=== PATIENT | female | born 1990 | race Caucasian/White ===

== ENCOUNTER 2017-06-11 12:03 | Emergency (ER) | payer MEDICAID ==
[~2017-06-11] VITALS: Ht 167.6 cm; Wt 77.1 kg
[2017-06-11 13:44] LABS: Urine Bilirubin Negative (Negative); Urine Blood Negative /uL (Negative); Urine Color Yellow (Yellow); Urine Glucose Normal (Normal); Urine Ketone Negative (Negative); Urine Mucus FEW (None Seen); Urine Nitrite Negative (Negative); Urine RBC 7 /hpf (0 - 4); Urine Squamous Epithelial Cell MOD /hpf (<5); Urine Urobilinogen Normal (Negative); Urine pH 6.5 (5.0-8.0)
[2017-06-11 15:32] VITALS: BP 104/62
== END 2017-06-11 18:03 | disposition home or self-care (01) ==
LOC: ER 12:03
DX: O23.41 Unspecified infection of urinary tract in pregnancy, first trimester (principal); O99.331 Smoking (tobacco) complicating pregnancy, first trimester; F17.210 Nicotine dependence, cigarettes, uncomplicated; Z3A.11 11 weeks gestation of pregnancy
CPT/HCPCS: 36415; 76801; 81001; 84702

== ENCOUNTER 2020-03-14 21:18 | Emergency (ER) | payer MEDICAID ==
[~2020-03-14] VITALS: Ht 170.2 cm; Wt 59.0 kg
[2020-03-14 22:13] LABS: Urine Bacteria FEW /hpf (None Seen); Urine Blood 3+ /uL (Negative); Urine Specific Gravity 1.003 (1.001-1.035); Urine WBC 3 /hpf (0 - 5)
[2020-03-14 22:19] LABS: Basophils # (auto) 0 10 ^3/uL (0-0.2); Basophils % (auto) 0.4 % (0.0-2.0); Eosinophils # (auto) 0 10 ^3/uL (0-0.8); Eosinophils % (auto) 0.1 % (0.0-7.0); Hematocrit 40.5 % (36.0-46.0); Hemoglobin 14.2 g/dL (12.2-16.2); Lymphocytes # (auto) 0.9 10 ^3/uL (0.4-5.4); Lymphocytes % (auto) 9.8 % (10.0-50.0); Mean Corpuscular Hemoglobin 31.9 pg (28.0-32.0); Mean Corpuscular Hgb Conc. 35.1 g/dL (32.0-36.0); Mean Corpuscular Volume 90.8 fL (80.0-100.0); Monocytes # (auto) 0.6 10 ^3/uL (0-1.3); Monocytes % (auto) 6.5 % (0.0-12.0); Neutrophils # (auto) 7.7 10 ^3/uL (1.6-8.6); Neutrophils % (auto) 83.2 % (37.0-80.0); Nucleated Red Blood Cells % 0.1 %; Platelet Count (auto) 185 10^3/uL (140-450); Red Blood Cells 4.46 10^6/uL (4.0-5.20); Red Cell Distribution Width 13.3 % (11.8-14.3); White Blood Cell 9.2 10^3/uL (4.4-10.8)
[2020-03-14 22:24] LABS: Albumin 3.8 g/dL (3.4-5.0); Anion Gap 6 (5-15); Blood Alcohol < 3.0 mg/dL (0-5); Blood Urea Nitrogen 6 mg/dL (7-18); Carbon Dioxide 28 mmol/L (21-32); Chloride 103 mmol/L (98-107); Glucose 83 mg/dL (74-106); Potassium 3.5 mmol/L (3.5-5.1); Sodium 137 mmol/L (136-145)
[2020-03-14 22:25] LABS: Alcohol, Urine < 3.0 mg/dL (0-10); Amphetamine Screen, Urine NEGATIVE (NEGATIVE); Barbiturate Scree,Urine NEGATIVE (NEGATIVE); Benzodiazephine Screen, Urine NEGATIVE (NEGATIVE); Cannabinoid Screen, Urine POSITIVE (NEGATIVE); Cocaine Screen, Urine POSITIVE (NEGATIVE); Opiate Scree,Urine NEGATIVE (NEGATIVE); Phencyclidine Screen, Urine NEGATIVE (NEGATIVE)
[2020-03-14 22:32] LABS: Alanine Aminotransferase 157 U/L (13-56); Alkaline Phosphatase 92 U/L (45-117); Aspartate Aminotransferase 100 U/L (15-37); BUN/Creatinine Ratio 9.1; Bilirubin, Total 0.4 mg/dL (0.2-1.0); GFR African American 134 mL/min; GFR Non-African American 111 mL/min; Total Protein 7.3 g/dL (6.4-8.2)
[2020-03-14] MEDS ORDERED: SODIUM CHLORIDE 0.9% 1,000 ML IV ONE (23:15)
[2020-03-14 23:30] LABS: INR 1.07 (0.9-1.15); Partial Thromboplastin Time 24.5 sec (23.0-31.2)
[2020-03-15] MEDS ORDERED: LORazepam 2MG/ML-1ML VIAL IV ONE (00:30)
[2020-03-15] MEDS ORDERED: IOHEXOL 300 MG/ML 100ML BOTTLE IJ ONE (00:35)
[2020-03-15] MEDS ORDERED: SODIUM CHLORIDE 0.9% 1,000 ML IV ONE (02:00)
[2020-03-15 06:18] VITALS: BP 108/73
== END 2020-03-15 06:15 | disposition home or self-care (01) ==
LOC: EDUNIT# 21:18 → EDBD 21:18 → ER 21:19
DX: F41.9 Anxiety disorder, unspecified (principal); F15.959 Other stimulant use, unspecified with stimulant-induced psychotic disorder, unspecified; N39.0 Urinary tract infection, site not specified; R55 Syncope and collapse; R00.0 Tachycardia, unspecified; F32.9 Major depressive disorder, single episode, unspecified; F17.210 Nicotine dependence, cigarettes, uncomplicated
CPT/HCPCS: 36415; 70450; 71045; 71260; 72125; 80053; 80307; 80320; 81001; 83880; 84484; 84702; 85025; 85379; 85610; 85730; 93005; 96361; 96374; 99285; J2060; Q9967